=== PATIENT | female | born 1950 | race Caucasian/White ===

== ENCOUNTER 2017-03-20 06:55 | Day surgery (SDC) | payer MEDICARE, OTHER ==
[~2017-03-20 06:55] MED LIST: RINGERS SOLUTION,LACTATED 1,000 ML IV PRN; ceFAZolin SODIUM 1 GM VIAL IV PRN
[2017-03-20] MEDS ORDERED: RINGERS SOLUTION,LACTATED 1,000 ML IV ONE ×2 (07:48→09:00)
[2017-03-20] MEDS ORDERED: BUPIVACAINE HCL 50 ML VIAL IJ ONE ×2 (08:10)
[2017-03-20 10:40] VITALS: BP 152/76
== END 2017-03-20 06:56 | disposition home or self-care (01) ==
LOC: AMB 06:55
PROVIDERS: ATTEND Orthopaedic Surgery
PROC: 0RGW04Z Fusion of Right Finger Phalangeal Joint with Internal Fixation Device, Open Approach (ICD-10-PCS; principal; 2017-03-20 08:00)
DX: M19.041 Primary osteoarthritis, right hand (principal); E11.9 Type 2 diabetes mellitus without complications; I10 Essential (primary) hypertension; K58.9 Irritable bowel syndrome, unspecified; E55.9 Vitamin D deficiency, unspecified; F32.9 Major depressive disorder, single episode, unspecified; Z68.25 Body mass index [BMI] 25.0-25.9, adult

== ENCOUNTER 2020-07-28 20:20 | Inpatient (IN) ==
[2020-07-28] MEDS ORDERED: NORMAL SALINE 1,000 ML IV ONE ×2 (20:38→23:35)
[2020-07-28 20:52] LABS: Hematocrit 35.1 % (37.0-47.0); Hemoglobin 12.6 gm/dL (12.5-16.0); Mean Corpuscular Hemoglobin 29.4 pg (27-31); Mean Corpuscular Hgb Conc 35.9 g/dl (32-36); Platelet Count 193 K/mm3 (150-450); Red Blood Count 4.28 M/mm3 (4.2-5.4); Red Cell Distribution Width 11.9 % (11.5-14.0); White Blood Count 6.7 K/mm3 (4.0-10.5)
[2020-07-28 21:09] LABS: Total Cells Counted 100
[2020-07-28 21:10] LABS: Troponin I Less than 0.017 ng/mL (0.00-0.10)
[2020-07-28 21:12] LABS: ALT 20 U/L (19-67); AST 21 U/L (0-48); Albumin * 2.9 gm/dl (3.4-5.0); Alkaline Phosphatase * 97 U/L (50-170); Anion Gap 14.4 mmol/L (6.8-13.8); BNP * 356 pg/mL (5-325); BUN/Creatinine Ratio 31.9 (9.0-21.6); Bilirubin, Total 0.8 mg/dL (0.0-1.1); Blood Urea Nitrogen 22 mg/dL (3-23); Ca. Corrected For Albumin 9.7 mg/dL (8.4-10.2); Calcium * 9.1 mg/dL (7.9-10.9); Carbon Dioxide 21.8 mmol/L (24-32.6); Chloride 100 mmol/L (97-106); Glucose * 264 mg/dL (70-110); Potassium 3.2 mmol/L (3.4-4.6); Sodium 133 mmol/L (132-142)
[2020-07-28] MEDS ORDERED: hydrALAZINE HCL 20 MG/ML VIAL IV ONE (21:23)
[2020-07-28 21:34] LABS: Eosinophil 1 % (0-3); Lymphocyte 10 % (20-51); Monocyte 4 % (0-9); Neutrophil 85 % (42-75); Neutrophil # 5.7 K/mm3 (1.3-6.0)
[2020-07-28 21:35] LABS: Platelet Estimate Normal (NORMAL); RBC Morphology Normal (NORMAL)
[2020-07-28] MEDS ORDERED: ONDANSETRON HCL/PF 2 MG/ML VIAL IV ONE (22:07)
[2020-07-28] MEDS ORDERED: ONDANSETRON HCL/PF 2 MG/ML VIAL ONE (22:08)
--- NOTE | 2020-07-28 22:16 | ERNOTE ---
Medical Problem HPI - General Chief Complaint: General Assessment Time Seen by Provider: 07/28/20 20:28 - Immun/Allergies/Home Medications Immunizations: IMMUNIZATION HX Immunizations Up to Date Yes History of Influenza Vaccine Yes Hx Pneumococcal Vaccination Yes Allergies/Adverse Reactions: Allergies amoxicillin trihydrate [From Augmentin XR] Adverse Reaction (Intermediate, Verified 07/28/20 20:30) Nausea n/d potassium clavula *RETIRED-03/21/13 [From Augmentin XR] Adverse Reaction (Intermediate, Verified 07/28/20 20:30) Nausea n/d Sulfa (Sulfonamide Antibiotics) Adverse Reaction (Intermediate, Verified 07/28/20 20:30) Nausea n/d Home Medications: HOME MEDICATIONS Omeprazole [Prilosec Generic] 20 mg PO DAILY 08/04/12 [Last Taken Unknown] Cholecalciferol (Vitamin D3) [Vitamin D] 2,000 unit PO DAILY 03/10/17 [Last Taken Unknown] fluticasone propionate 50 mcg/actuation nasal spray,suspension 2 spray INTRANASAL DAILY #16 g 11/01/18 [Last Taken Unknown] blood sugar diagnostic See Dose Instructions .ROUTE .MEDSUPPLY #100 ea 01/27/19 [Last Taken Unknown] lancets See Dose Instructions .ROUTE .MEDSUPPLY #100 ea 01/27/19 [Last Taken Unknown] meloxicam 15 mg tablet 15 mg PO DAILY #90 tab 11/29/19 [Last Taken Unknown] citalopram 40 mg tablet 40 mg PO DAILY #90 tab 02/09/20 [Last Taken Unknown] losartan 100 mg tablet 100 mg PO DAILY #90 tab 02/09/20 [Last Taken Unknown] metformin 500 mg tablet 1,000 mg PO QDAC #180 tab 02/09/20 [Last Taken Unknown] eszopiclone 1 mg tablet 1 mg PO HS #30 tab 02/28/20 [Last Taken Unknown] pramipexole 1 mg tablet 2 mg PO HS #180 tab 03/27/20 [Last Taken Unknown] aspirin 81 mg tablet,delayed release 81 mg PO DAILY 04/03/20 [Last Taken Unknown] clobetasol-emollient 0.05 % topical cream 1 applic TP 2XW #30 g 04/03/20 [Last Taken Unknown] latanoprost 0.005 % eye drops 1 drp OP DAILY 08/18/20 [Last Taken Unknown] azithromycin 250 mg tablet See Rx Instructions PO .COMPLEX #6 tab 07/23/20 [Last Taken Unknown] dexamethasone 6 mg tablet 6 mg PO DAILY 10 Days #10 tab 07/23/20 [Last Taken Unknown] dicyclomine 20 mg tablet 20 mg PO QID #360 tab 07/23/20 [Last Taken Unknown] Ondansetron [Zofran Odt] 8 mg PO Q8H PRN #12 tab 07/24/20 [Last Taken Unknown] - History of Present History Narrative: 70-year-old female presents stating that she feels worse despite having received some early treatment for Covid. Her Covid test came back positive on Thursday however she has been having symptoms since 2 days before that giving her a total of 5 to 6 days of symptoms. Patient states she received [facility] therapy however due to nausea and just generalized not feeling well has not been able to take any of her medications at home. On arrival patient is alert and oriented with some mild work of breathing and her initial oxygen saturation was 89% on room air requiring 3 L to bring her to 94%. Review of Systems - Review of Systems Constitutional: Present: See HPI, weakness Respiratory: Present: See HPI, shortness of breath, cough Gastrointestinal/Abdominal: Present: nausea All Other Systems: All systems neg except as marked Medical History (Last Reviewed 07/28/20 @ 22:12 by Alivia Blackburn MD) Vitiligo (Chronic) Onset Date: Unknown Hypovitaminosis D (Chronic) Onset Date: 02/09/13 Restless leg syndrome (Chronic) Onset Date: 02/09/13 Irritable bowel syndrome (Chronic) Onset Date: Unknown Essential (primary) hypertension (Chronic) Onset Date: 02/09/13 Gout (Chronic) Onset Date: 02/09/13 Type 2 diabetes mellitus without complications (Chronic) Onset Date: 03/14/16 Depression (Chronic) Onset Date: Unknown Arthrosis (Chronic) Onset Date: ~2016 rt small finger PIP Dr. Buckner----right small finger proximal interphalangeal arthrodesis Glaucoma Influenza vaccine not given Onset Date: ~07/23/20 Has already received for the season. Anita, [employer] Lichen sclerosus Onset Date: Unknown Postmenopausal atrophic vaginitis Onset Date: 08/20/12 Postmenopausal bleeding Onset Date: 07/16/12 Sebaceous cyst Onset Date: 03/29/13 vulvar Thickened endometrium Onset Date: 07/16/12 Vulvovaginitis Onset Date: ~2009 vestibulitis- per [facility]; 2009 Surgical History: Surgical History (Last Reviewed 07/28/20 @ 22:12 by Alivia Blackburn MD) History of 2 sections Onset Date: ~1971 1971, 1975 History of arthrodesis Onset Date: 03/20/17 Dr. Buckner----right small finger proximal interphalangeal arthrodesis History of colonoscopy Onset Date: Unknown alonso--(over 20 yrs ago)--mark 1989 told ibs, spastic colon History of dilation and curettage Onset Date: 08/05/12 Dr. Zoraida Coyle, [facility]. Postmenopausal bleeding. History of flexible sigmoidoscopy Onset Date: 09/10/10 Dr. Kyle Andres, [facility]. Unable to advance scope beyond 35cm. History of hysteroscopy Onset Date: 08/05/12 Dr. Zoraida Coyle [facility]. Postmenopausal bleeding. History of lumpectomy of left breast Onset Date: ~1997 benign History of tonsillectomy and adenoidectomy Onset Date: ~1962 1962, 1966 Family History: Family History (Last Reviewed 07/28/20 @ 22:12 by Alivia Blackburn MD) Father Myocardial infarction Mother Leukemia Lymphoma Social History: (Last Reviewed 07/28/20 @ 22:12 by Alivia Blackburn MD) Social History: adopted: No snf: No Marital status: household members: spouse number of children: 2 current occupational status: retired current occupational exposures/hazards: No Highest level of school completed/degree received: high school graduate Service: No Tobacco: Smoking Status: Never smoker Alcohol: alcohol intake: never Substance Use: substance use type: does not use Dietary Habits: caffeine: Yes caffeine comment: 0-2/day Type: coffee Personal Safety: victim of physical abuse: No victim of emotional abuse: No Physical Exam - Physical Exam General Appearance: Present: alert, mild distress Head Exam: Present: normal inspection, no evidence of injury Eye Exam: Normal inspection: bilateral Ears, Nose, Throat: Present: dry mucous membranes Neck: Present: normal inspection, nontender, supple, full range of motion Respiratory: Present: respiratory distress - Mild although speaking in complete sentences Cardiovascular/Chest: Present: regular rate, rhythm, normal peripheral pulses, tachycardia Gastrointestinal/Abdominal: Present: nontender, nondistended, soft Back Exam: Present: no CVA tenderness, no vertebral tenderness Extremity Exam: Present: normal inspection, non-tender, normal range of motion, no edema Neurological Exam: Present: alert, oriented, normal mood/affect Skin Exam: Present: normal color, other - Mild skin tenting Progress - Results and Orders Patient's Lab Results:: I have reviewed the patient's lab results. - Vital Signs Patient's Vital Signs:: I have reviewed the patient's vital signs. Vital Signs: Vital Signs 07/28/20 20:33 07/28/20 21:32 07/28/20 21:41 Temperature 37.0 C Pulse Rate 92 86 106 H Respiratory Rate 14 18 Blood Pressure 184/91 H 198/101 H 160/86 H O2 Sat by Pulse Oximetry 95 95 - EKG EKG #1 EKG: NSR, nonspecific ST T wave changes, other - Sinus tachycardia rate 112 EKG #2 EKG: NSR, nonspecific ST T wave changes, other - Sinus tachycardia rate 112 EKG read: Reviewed by me - X-Ray X-Ray #1 X-Ray: chest - Patchy infiltrates consistent with Covid Interpretation: Interp. by me - Progress/Reassessment Chief Complaint: General Assessment Plan - Plan Plan: Patient given IV hydration not improving despite medications and noncompliant at home due to nausea initial troponin is negative BNP mildly elevated patient has patchy infiltrates consistent with Covid Case discussed with admitting physician who accepted the patient for further care and management of Covid with hypoxia Departure Clinical Impression: COVID-19, Hypoxia Hypertension Qualifiers: Hypertension type: essential hypertension Qualified Code(s): I10 - Essential (primary) hypertension - Departure Disposition: Short Term Hospital Inpatient Condition: Fair Referrals: Juarez Boggs DO [Primary Care Provider] -
[2020-07-28] MEDS ORDERED: POTASSIUM CHLORIDE 20 MEQ TABLET.SA PO ONE (23:21)
[2020-07-28] MEDS ORDERED: ACETAMINOPHEN 325 MG TABLET PO PRN (23:22)
[2020-07-28] MEDS ORDERED: ONDANSETRON HCL/PF 2 MG/ML VIAL IV PRN (23:22)
[2020-07-28] MEDS ORDERED: REMDESIVIR 200 MG in NORMAL SALINE 210 ML IV ONE (23:23)
[2020-07-28] MEDS ORDERED: guaiFENesin 100 MG/5 ML SYRUP PO PRN (23:23)
[2020-07-28] MEDS ORDERED: REMDESIVIR 100 MG in NORMAL SALINE 230 ML IV SCH (23:30)
[2020-07-28] MEDS ORDERED: ONDANSETRON 8 MG TAB.RAPDIS PO PRN (23:31)
[2020-07-28] MEDS ORDERED: AZITHROMYCIN 250 MG TABLET PO SCH (23:45)
--- NOTE | 2020-07-29 00:07 | HP ---
Chief Complaint - Chief Complaint Date of Service: 07/28/20 Time of Service: 23:54 Chief Complaint: I have shortness of breath cough body ache and headache History of Present Illness: 70-year-old female with past medical history of type 2 diabetes, hypertension, insomnia, depression, and glaucoma was evaluated in the ER due to worsening generalized weakness shortness of breath headache and malaise. The patient reports since last Thursday she started feeling ill and developed intense headache and body ache, shortly after she started developing chills but denies having fever. The patient received a positive COVID-19 diagnosis on Thursday and was discharged home with outpatient management with the been been therapy. However she admits that due to poor oral intake secondary to intense nausea she did not take the medications which included dexamethasone and azithromycin, she also admits to not taking any of her routine medications which would explain her significantly elevated blood pressure upon arriving to the hospital today. The patient's condition worsened throughout the week and she eventually started having difficulty breathing. She became alarmed enough to come to the hospital today where she was found to have an oxygen saturation in the upper 80s with a requirement for at least 3 L of oxygen to maintain a saturation of 94% which is new for the patient. The patient appeared significantly dehydrated and weak with current hospitalization. Medical History (Last Reviewed 07/28/20 @ 22:12 by Alivia Blackburn MD) Vitiligo (Chronic) Onset Date: Unknown Hypovitaminosis D (Chronic) Onset Date: 02/09/13 Restless leg syndrome (Chronic) Onset Date: 02/09/13 Irritable bowel syndrome (Chronic) Onset Date: Unknown Essential (primary) hypertension (Chronic) Onset Date: 02/09/13 Gout (Chronic) Onset Date: 02/09/13 Type 2 diabetes mellitus without complications (Chronic) Onset Date: 03/14/16 Depression (Chronic) Onset Date: Unknown Arthrosis (Chronic) Onset Date: ~2016 rt small finger PIP Dr. Buckner----right small finger proximal interphalangeal arthrodesis Glaucoma Influenza vaccine not given Onset Date: ~07/23/20 Has already received for the season. [facility] Lichen sclerosus Onset Date: Unknown Postmenopausal atrophic vaginitis Onset Date: 08/20/12 Postmenopausal bleeding Onset Date: 07/16/12 Sebaceous cyst Onset Date: 03/29/13 vulvar Thickened endometrium Onset Date: 07/16/12 Vulvovaginitis Onset Date: ~2009 vestibulitis- per [facility]; 2009 Surgical History: Surgical History (Last Reviewed 07/28/20 @ 22:12 by Alivia Blackburn MD) History of 2 sections Onset Date: ~1971 1971, 1975 History of arthrodesis Onset Date: 03/20/17 Dr. Buckner----right small finger proximal interphalangeal arthrodesis History of colonoscopy Onset Date: Unknown alonso--(over 20 yrs ago)--mark 1989 told ibs, spastic colon History of dilation and curettage Onset Date: 08/05/12 Dr. Zoarida Coyle, [facility]. Postmenopausal bleeding. History of flexible sigmoidoscopy Onset Date: 09/10/10 Dr. Kyle Andres, [facility]. Unable to advance scope beyond 35cm. History of hysteroscopy Onset Date: 08/05/12 Dr. Zoraida Coyle [facility]. Postmenopausal bleeding. History of lumpectomy of left breast Onset Date: ~1997 benign History of tonsillectomy and adenoidectomy Onset Date: ~1962 1962, 1966 Family History: Family History (Last Reviewed 07/28/20 @ 22:12 by Alivia Blackburn MD) Father Myocardial infarction Mother Leukemia Lymphoma Social History: (Last Reviewed 07/28/20 @ 22:12 by Alivia Blackburn MD) Social History: adopted: No halfway: No Marital status: household members: spouse number of children: 2 current occupational status: retired current occupational exposures/hazards: No Highest level of school completed/degree received: high school graduate Service: No Tobacco: Smoking Status: Never smoker Alcohol: alcohol intake: never Substance Use: substance use type: does not use Dietary Habits: caffeine: Yes caffeine comment: 0-2/day Type: coffee Personal Safety: victim of physical abuse: No victim of emotional abuse: No Peds Patient Hx - Developmental: No Pertinent Hx Peds Patient Hx - Medical: No Pertinent Hx Peds Patient Hx - Cardiac/Respiratory: No Pertinent Hx Peds Patient Hx - Surgical: No Surgical History Patient History - Cancer: No Hx of Cancer Review Of Systems (GEN) - Review of Systems Generalized/Overall Review: Present: Weakness, Chills, Malaise, Fatigue EENTM: Present: No Symptoms Reported Respiratory: Present: Cough, Shortness of Breath Cardiac: Present: No Symptoms Reported Abdominal: Present: Nausea, Abdominal Pain Genitourinary: Present: No Symptoms Reported Musculoskeletal: Present: Other - Generalized body ache Neurological: Present: No Symptoms Reported Skin: Present: No Symptoms Reported Endocrine: Present: No Symptoms Reported Immunizations: IMMUNIZATION HX Immunizations Up to Date Yes History of Influenza Vaccine Yes Hx Pneumococcal Vaccination Yes Allergies/Adverse Reactions: Allergies Allergy/AdvReac Type Severity Reaction Status Date / Time amoxicillin trihydrate AdvReac Intermediate Nausea Verified 07/28/20 20:30 [From Augmentin XR] potassium clavula AdvReac Intermediate Nausea Verified 07/28/20 20:30 *RETIRED-03/21/13 [From Augmentin XR] Sulfa (Sulfonamide AdvReac Intermediate Nausea Verified 07/28/20 20:30 Antibiotics) Home Medications: HOME MEDICATIONS Omeprazole [Prilosec Generic] 20 mg PO DAILY 08/04/12 [Last Taken Unknown] Cholecalciferol (Vitamin D3) [Vitamin D] 2,000 unit PO DAILY 03/10/17 [Last Taken Unknown] fluticasone propionate 50 mcg/actuation nasal spray,suspension 2 spray INTRANASAL DAILY #16 g 11/01/18 [Last Taken Unknown] blood sugar diagnostic See Dose Instructions .ROUTE .MEDSUPPLY #100 ea 01/27/19 [Last Taken Unknown] lancets See Dose Instructions .ROUTE .MEDSUPPLY #100 ea 01/27/19 [Last Taken Unknown] meloxicam 15 mg tablet 15 mg PO DAILY #90 tab 11/29/19 [Last Taken Unknown] citalopram 40 mg tablet 40 mg PO DAILY #90 tab 02/09/20 [Last Taken Unknown] losartan 100 mg tablet 100 mg PO DAILY #90 tab 02/09/20 [Last Taken Unknown] metformin 500 mg tablet 1,000 mg PO QDAC #180 tab 02/09/20 [Last Taken Unknown] eszopiclone 1 mg tablet 1 mg PO HS #30 tab 02/28/20 [Last Taken Unknown] pramipexole 1 mg tablet 2 mg PO HS #180 tab 03/27/20 [Last Taken Unknown] aspirin 81 mg tablet,delayed release 81 mg PO DAILY 04/03/20 [Last Taken Unknown] clobetasol-emollient 0.05 % topical cream 1 applic TP 2XW #30 g 04/03/20 [Last Taken Unknown] latanoprost 0.005 % eye drops 1 drp OP DAILY 04/03/20 [Last Taken Unknown] azithromycin 250 mg tablet See Rx Instructions PO .COMPLEX #6 tab 07/23/20 [Last Taken Unknown] dexamethasone 6 mg tablet 6 mg PO DAILY 10 Days #10 tab 07/23/20 [Last Taken Unknown] dicyclomine 20 mg tablet 20 mg PO QID #360 tab 07/23/20 [Last Taken Unknown] Ondansetron [Zofran Odt] 8 mg PO Q8H PRN #12 tab 07/24/20 [Last Taken Unknown] Exam - Exam Vital Signs: Vital Signs - Last Taken Temp 36.6 C 07/28/20 23:14 Pulse 108 H 07/28/20 23:14 Resp 15 07/28/20 23:14 BP 167/77 H 07/28/20 23:14 Pulse Ox 100 07/28/20 23:14 Constitutional: Present: Alert, Oriented x3, Cooperative, Well developed, No distress, Lethargic, Thin and frail ENT Exam: Present: normal ENT inspection, hearing grossly normal Eye Exam: bilateral eye: normal inspection, PERRL, EOMI Neck: Present: non-tender, full range of motion, supple, normal inspection, trachea midline Back Exam: Present: normal inspection, no CVA tenderness, no vertebral tenderness Breasts: Present: Exam deferred, Nontender Respiratory: Present: chest non-tender, normal breath sounds, no respiratory distress, no accessory muscle use, crackles Cardiovascular/Chest: Present: normal peripheral pulses, regular rate, rhythm, no chest tenderness, no edema, no gallop, no JVD, no murmur, no rub Peripheral Pulses: dorsalis-pedis (R): 3+, dorsalis-pedis (L): 3+ Abdomen: Present: Normal bowel sounds, soft, nondistended, no rebound tenderness, no hepatospenomegaly, no masses, tender - Left upper, lower quadrant and right lower quadrant tenderness. /Rectal: Present: Exam deferred Extremity: Present: normal range of motion, non-tender, normal inspection, no pedal edema, no calf tenderness, normal capillary refill, pelvis stable Skin Exam: Present: warm/dry, no cyanosis, pallor, other - Erythema on knees worse on left Lymphatic: Present: no adenopathy Neurologic: Present: no motor/sensory deficits, alert, normal mood/affect, oriented x 3 Appearance: Present: appropriate appearance, appropriate insight, neat, no memory impairment Eye contact: Present: cooperative, good eye contact, normal speech Thoughts: Present: normal thought pattern, no apparent hallucination Diagnostic Studies: Abnormal Lab Results 07/28/20 07/28/20 Range/Units 20:31 20: Hct 35.1 L (37.0-47.0) % Neutrophils % (Manual) 85 H (42-75) % Lymphocytes % (Manual) 10 L (20-51) % Lymphocytes # (Manual) 0.7 L (1.5-3.5) k/mm3 Potassium 3.2 L D (3.4-4.6) mmol/L Carbon Dioxide 21.8 L (24-32.6) mmol/L Anion Gap 14.4 H (6.8-13.8) mmol/L BUN/Creatinine Ratio 31.9 H (9.0-21.6) Random Glucose 264 H (70-110) mg/dL B-Natriuretic Peptide 356 H (5-325) pg/mL Albumin 2.9 L (3.4-5.0) gm/dl Laboratory Results WBC 6.7 K/mm3 (4.0-10.5) 07/28/20 20: RBC 4.28 M/mm3 (4.2-5.4) 07/28/20 20:31 Hgb 12.6 gm/dL (12.5-16.0) 07/28/20 20: Hct 35.1 % (37.0-47.0) L 07/28/20 20:31 MCV 82.0 fl (78-100) 07/28/20 20: MCH 29.4 pg (27-31) 07/28/20 20: MCHC 35.9 g/dl (32-36) 07/28/20 20: RDW 11.9 % (11.5-14.0) 07/28/20 20:31 Plt Count 193 K/mm3 (150-450) 07/28/20 20: MPV 9.0 fl (8-12.5) 07/28/20 20:31 Neutrophils % (Manual) 85 % (42-75) H 07/28/20 20:31 Lymphocytes % (Manual) 10 % (20-51) L 07/28/20 20:31 Monocytes % (Manual) 4 % (0-9) 07/28/20 20:31 Eosinophils % (Manual) 1 % (0-3) 07/28/20 20:31 Neutrophils # (Manual) 5.7 K/mm3 (1.3-6.0) 07/28/20 20:31 Lymphocytes # (Manual) 0.7 k/mm3 (1.5-3.5) L 07/28/20 20:31 Monocytes # (Manual) 0.3 k/mm3 (0.0-1.0) 07/28/20 20:31 Eosinophils # (Manual) 0.1 k/mm3 (0.0-0.7) 07/28/20 20:31 Platelet Estimate Normal (NORMAL) 07/28/20 20:31 RBC Morphology Normal (NORMAL) 07/28/20 20:31 Sodium 133 mmol/L (132-142) 07/28/20 20:31 Plasma Sodium 136 mmol/L (130-142) 07/28/20 20:31 Potassium 3.2 mmol/L (3.4-4.6) L D 07/28/20 20:31 Chloride 100 mmol/L (97-106) 07/28/20 20:31 Carbon Dioxide 21.8 mmol/L (24-32.6) L 07/28/20 20:31 Anion Gap 14.4 mmol/L (6.8-13.8) H 07/28/20 20:31 BUN 22 mg/dL (3-23) 07/28/20 20:31 Creatinine 0.69 mg/dL (0.4-1.4) 07/28/20 20:31 Est GFR (Non-Af Amer) 90 mL/min (60-130) D 07/28/20 20:31 BUN/Creatinine Ratio 31.9 (9.0-21.6) H 07/28/20 20:31 Random Glucose 264 mg/dL (70-110) H 07/28/20 20:31 Lactic Acid, Venous 2.0 mmol/L (0.4-2.0) 07/28/20 20:31 Calcium 9.1 mg/dL (7.9-10.9) 07/28/20 20:31 Calcium Adj for Albumin 9.7 mg/dL (8.4-10.2) 07/28/20 20: Total Bilirubin 0.8 mg/dL (0.0-1.1) 07/28/20 20:31 AST 21 U/L (0-48) 07/28/20 20: ALT 20 U/L (19-67) 07/28/20 20: Alkaline Phosphatase 97 U/L (50-170) 07/28/20 20: Troponin I Less than 0.017 ng/mL (0.00-0.10) 07/28/20 20: B-Natriuretic Peptide 356 pg/mL (5-325) H 07/28/20 20: Total Protein 7.0 gm/dL (6.2-8.2) 07/28/20 20: Albumin 2.9 gm/dl (3.4-5.0) L 07/28/20 20:31 Assessment/Plan - Narrative Narrative: Patient was evaluated medical chart was reviewed and decision to admit inpatient to [facility] for management of COVID-19 pneumonia, severe dehydration, and poor oral intake was made. We will treat the patient with remdesivir given the presentation of her symptoms and the duration of her illness. We will also start her on the previously prescribed outpatient treatments with azithromycin and dexamethasone since she did not take them while at home. Currently she is on nasal cannula requiring 3 L which she is tolerating without any issues. We will also hydrate her because the patient appears significantly dehydrated. Symptomatic medications with acetaminophen for fever, Zofran for nausea, and an antitussive for cough were ordered. We will also administer routine medications. We will reevaluate the patient in the morning. - Assessment/Plan (1) COVID-19 Problem: Acute (2) Hypoxia Problem: Acute (3) Hypertension Problem: Acute Qualifiers: Hypertension type: essential hypertension Qualified Code(s): I10 - Essential (primary) hypertension (4) Dyspnea Problem: Acute (5) Irritable bowel syndrome Problem: Chronic (6) Essential (primary) hypertension Problem: Chronic (7) Type 2 diabetes mellitus without complications Problem: Chronic Qualifiers: (8) Depression Problem: Chronic (9) Dehydration Problem: Acute (10) Generalized weakness Problem: Acute (11) Poor appetite Problem: Acute
[2020-07-29] MEDS ORDERED: POTASSIUM CHLORIDE 20 MEQ TABLET.SA ONE (00:44)
[2020-07-29] MEDS: DICYCLOMINE HCL 20 MG TABLET PO SCH ×5 (00:50→20:11)
[2020-07-29] MEDS: ENOXAPARIN SODIUM 40 MG/0.4 ML SYRG SC SCH ×2 (00:50→20:11)
[2020-07-29] MEDS ORDERED: AZITHROMYCIN 250 MG TABLET PO ONE (01:59)
[2020-07-29] MEDS: POTASSIUM CHLORIDE IN WATER 100 ML IV SCH ×2 (02:51→03:56)
[2020-07-29] MEDS: PANTOPRAZOLE SODIUM 20 MG TABLET.DR PO SCH ×2 (07:10→20:12)
[2020-07-29] MEDS: metFORMIN HCL 500 MG TABLET PO SCH (07:10)
[2020-07-29 07:29] LABS: Albumin * 2.4 gm/dl (3.4-5.0); Anion Gap 11.8 mmol/L (6.8-13.8); BUN/Creatinine Ratio 27.1 (9.0-21.6); Bilirubin, Total 0.6 mg/dL (0.0-1.1); Carbon Dioxide 22.6 mmol/L (24-32.6); Potassium 3.4 mmol/L (3.4-4.6); Total Protein 5.2 gm/dL (6.2-8.2)
[2020-07-29] MEDS: INSULIN REGULAR, HUMAN 100 UNITS/ML VIAL SC SCH ×4 (08:14→20:37)
[2020-07-29] MEDS: FLUTICASONE PROPIONATE 120 SPRAY INHALER NS SCH (08:45)
[2020-07-29] MEDS: CITALOPRAM HYDROBROMIDE 20 MG TABLET PO SCH (08:46)
[2020-07-29] MEDS: LOSARTAN POTASSIUM 50 MG TABLET PO SCH (08:46)
[2020-07-29] MEDS: DEXAMETHASONE 2 MG TABLET PO SCH (08:46)
[2020-07-29] MEDS: CHOLECALCIFEROL 1,000 UNIT CAPSULE PO SCH (08:46)
[2020-07-29] MEDS: ASPIRIN 81 MG TABLET.DR PO SCH (08:46)
[2020-07-29] MEDS ORDERED: CLOBETASOL PROPIONATE/EMOLL 60 APPL TUBE TP SCH (09:00)
[2020-07-29] MEDS ORDERED: NORMAL SALINE 1,000 ML IV ONE (14:32)
--- NOTE | 2020-07-29 14:33 | PN ---
Subjective - Date and Time Seen Date: 07/29/20 Time: 14:26 Subjective Narrative: I still feel lousy, weak and poor appetite Objective Objective Narrative: 70-year-old female admitted for COVID-19 pneumonia, dehydration, and generalized weakness was evaluated at bedside and was found to be afebrile and in no acute distress. Patient has shown some improvement since arriving however she continues to report weakness and a poor appetite. Patient refused her breakfast this morning and has only been taking sips of water. During the evaluation she was encouraged to increase her oral intake to avoid worsening malnourishment. She was treated with IV hydration and symptomatic medications and says she feels somewhat better, her color has also improved. However clinically the patient still appears acutely ill and requires a longer duration of the hospital. She was successfully weaned to room air and is maintaining oxygen saturation above 94% and maintained stable vitals. We will reevaluate her in the morning. - Review of Systems Generalized/Overall Review: Reports: Weakness EENTM: Reports: No Symptoms Reported Respiratory: Reports: Cough Cardiac: Reports: No Symptoms Reported Abdominal: Reports: No Symptoms Reported Genitourinary Symptoms: Reports: No Symptoms Reported Musculoskeletal Complaints: Reports: No Symptoms Reported Neurological: Reports: No Symptoms Reported Skin: Reports: No Symptoms Reported Endocrine: Reports: No Symptoms Reported - Vitals Vitals: Last Vital Signs Temp 37.3 C 07/29/20 14:00 Pulse 73 07/29/20 14:00 Resp 15 07/29/20 14:00 BP 151/74 H 07/29/20 14:00 Pulse Ox 100 07/29/20 14:00 - Abnormal Lab Findings Abnormal Lab Findings: Abnormal Lab Results 07/28/20 07/28/20 07/29/20 Range/Units 20:31 20:31 06:40 Hct 35.1 L (37.0-47.0) % Neutrophils % (Manual) 85 H (42-75) % Lymphocytes % (Manual) 10 L (20-51) % Lymphocytes # (Manual) 0.7 L (1.5-3.5) k/mm3 Potassium 3.2 L D (3.4-4.6) mmol/L Chloride 107 H (97-106) mmol/L Carbon Dioxide 21.8 L 22.6 L (24-32.6) mmol/L Anion Gap 14.4 H (6.8-13.8) mmol/L BUN/Creatinine Ratio 31.9 H 27.1 H (9.0-21.6) Random Glucose 264 H 190 H (70-110) mg/dL ALT 17 L (19-67) U/L B-Natriuretic Peptide 356 H (5-325) pg/mL Total Protein 5.2 L (6.2-8.2) gm/dL Albumin 2.9 L 2.4 L (3.4-5.0) gm/dl - Exam Constitutional: Present: Alert, Oriented x3, Cooperative, Well developed, Well nourished, No distress, Lethargic, Elderly ENT Exam: Present: normal ENT inspection, hearing grossly normal Neck: Present: non-tender, full range of motion, supple, normal inspection, trachea midline Breasts: Present: Exam deferred, Nontender Respiratory: Present: chest non-tender, lungs clear, normal breath sounds, no respiratory distress, no accessory muscle use Cardiovascular/Chest: Present: normal peripheral pulses, regular rate, rhythm, no chest tenderness, no edema, no gallop, no JVD, no murmur, no rub Abdomen: Present: Normal bowel sounds, soft, nontender, nondistended, no rebound tenderness, no hepatospenomegaly, no masses /Rectal: Present: Exam deferred Extremity: Present: normal range of motion, non-tender, normal inspection, no pedal edema, no calf tenderness, normal capillary refill, pelvis stable Skin Exam: Present: warm/dry, no cyanosis, pallor Lymphatic: Present: no adenopathy Neurologic: Present: no motor/sensory deficits, alert Appearance: Present: appropriate appearance, appropriate insight, neat, no luann ry impairment Eye contact: Present: cooperative, good eye contact, normal speech Thoughts: Present: normal thought pattern, no apparent hallucination Assessment/Plan Plan Narrative: We will treat the patient with additional IV hydration especially given the fact that she still has poor oral intake, she is gaining her strength but still is not at her baseline so she will need additional days of intrahospital care. We will continue to monitor closely. - Problems/Diagnosis (1) COVID-19 Problem: Acute (2) Hypoxia Problem: Resolved (3) Hypertension Problem: Acute Qualifiers: Hypertension type: essential hypertension Qualified Code(s): I10 - Essential (primary) hypertension (4) Dyspnea Problem: Resolved (5) Irritable bowel syndrome Problem: Chronic (6) Essential (primary) hypertension Problem: Chronic (7) Type 2 diabetes mellitus without complications Problem: Chronic Qualifiers: (8) Depression Problem: Chronic (9) Dehydration Problem: Acute (10) Generalized weakness Problem: Acute (11) Poor appetite Problem: Acute
[2020-07-29] MEDS ORDERED: amLODIPine BESYLATE 10 MG TABLET PO ONE (20:00)
[2020-07-29] MEDS: PRAMIPEXOLE DI-HCL 0.5 MG TABLET PO SCH (20:11)
[2020-07-29] MEDS: ESZOPICLONE 1 MG PO SCH (20:12)
[2020-07-29] MEDS: LATANOPROST 25 DROP BTL OP SCH (20:12)
[2020-07-29] MEDS ORDERED: REMDESIVIR 100 MG in NORMAL SALINE 230 ML IV SCH (21:00)
[2020-07-30] MEDS: metFORMIN HCL 500 MG TABLET PO SCH (06:48)
[2020-07-30] MEDS: PANTOPRAZOLE SODIUM 20 MG TABLET.DR PO SCH ×2 (06:49→20:22)
[2020-07-30 07:12] LABS: Albumin * 2.3 gm/dl (3.4-5.0); Anion Gap 12.5 mmol/L (6.8-13.8); BUN/Creatinine Ratio 25.5 (9.0-21.6); Bilirubin, Total 0.5 mg/dL (0.0-1.1); Ca. Corrected For Albumin 9.1 mg/dL (8.4-10.2); Calcium * 8.1 mg/dL (7.9-10.9); Carbon Dioxide 23.5 mmol/L (24-32.6); Total Protein 5.6 gm/dL (6.2-8.2)
[2020-07-30] MEDS: INSULIN REGULAR, HUMAN 100 UNITS/ML VIAL SC SCH ×4 (07:15→20:44)
[2020-07-30] MEDS: DICYCLOMINE HCL 20 MG TABLET PO SCH ×4 (08:08→20:22)
[2020-07-30] MEDS: CHOLECALCIFEROL 1,000 UNIT CAPSULE PO SCH (08:08)
[2020-07-30] MEDS: ASPIRIN 81 MG TABLET.DR PO SCH (08:08)
[2020-07-30] MEDS: FLUTICASONE PROPIONATE 120 SPRAY INHALER NS SCH (08:09)
[2020-07-30] MEDS: AZITHROMYCIN 250 MG TABLET PO SCH (08:09)
[2020-07-30] MEDS: DEXAMETHASONE 2 MG TABLET PO SCH (08:09)
[2020-07-30] MEDS: LOSARTAN POTASSIUM 50 MG TABLET PO SCH (08:10)
[2020-07-30] MEDS: CITALOPRAM HYDROBROMIDE 20 MG TABLET PO SCH (08:10)
[2020-07-30] MEDS ORDERED: POTASSIUM CHLORIDE 20 MEQ TABLET.SA PO ONE (08:51)
[2020-07-30] MEDS: ENOXAPARIN SODIUM 40 MG/0.4 ML SYRG SC SCH (20:21)
[2020-07-30] MEDS: PRAMIPEXOLE DI-HCL 0.5 MG TABLET PO SCH (20:22)
[2020-07-30] MEDS: ESZOPICLONE 1 MG PO SCH (20:41)
[2020-07-30] MEDS: LATANOPROST 25 DROP BTL OP SCH (20:41)
--- NOTE | 2020-07-30 23:58 | PN ---
Subjective - Date and Time Seen Date: 07/30/20 Time: 15:30 Subjective Narrative: Viviana feels extremely weak. She only took bites of food today, but this is an improvement over yesterday where she ate nothing. She remains of oxygen. Objective - Vitals Vitals: Last Vital Signs Temp 36.9 C 07/30/20 22:05 Pulse 76 07/30/20 22:05 Resp 18 07/30/20 22:05 BP 150/77 H 07/30/20 22:05 Pulse Ox 95 07/30/20 22:05 - Abnormal Lab Findings Abnormal Lab Findings: Abnormal Lab Results 07/30/20 Range/Units 06:40 Potassium 3.0 L (3.4-4.6) mmol/L Carbon Dioxide 23.5 L (24-32.6) mmol/L BUN/Creatinine Ratio 25.5 H (9.0-21.6) Random Glucose 174 H (70-110) mg/dL ALT 15 L (19-67) U/L Total Protein 5.6 L (6.2-8.2) gm/dL Albumin 2.3 L (3.4-5.0) gm/dl - Exam Exam Narrative: Curled up in a ball, too weak to move and look at me when speaking. Constitutional: Present: Alert, Oriented x3 ENT Exam: Present: hearing grossly normal Respiratory: Present: lungs clear, normal breath sounds, no respiratory distress Cardiovascular/Chest: Present: regular rate, rhythm Abdomen: Present: Normal bowel sounds, soft, nontender, nondistended Skin Exam: Present: normal color, warm/dry, no cyanosis Appearance: Present: appropriate insight Eye contact: Present: cooperative, good eye contact, normal speech Assessment/Plan Plan Narrative: Respiratory status doing well, but she is not eating or drinking adequately to safely discharge to home. She has been rehydrated but not eating or drinking enough on her own to maintain that level and would be readmitted if discharged. Blood pressure improved today. - Problems/Diagnosis (1) COVID-19 Problem: Acute (2) Dehydration Problem: Acute (3) Generalized weakness Problem: Acute (4) Essential (primary) hypertension Problem: Chronic
[2020-07-31 06:56] LABS: Albumin * 2.4 gm/dl (3.4-5.0); Anion Gap 11.5 mmol/L (6.8-13.8); BUN/Creatinine Ratio 23.1 (9.0-21.6); Bilirubin, Total 0.5 mg/dL (0.0-1.1); Ca. Corrected For Albumin 9.6 mg/dL (8.4-10.2); Calcium * 8.6 mg/dL (7.9-10.9); Carbon Dioxide 24.5 mmol/L (24-32.6); Total Protein 5.6 gm/dL (6.2-8.2)
[2020-07-31] MEDS: INSULIN REGULAR, HUMAN 100 UNITS/ML VIAL SC SCH ×2 (07:05→12:22)
[2020-07-31] MEDS: PANTOPRAZOLE SODIUM 20 MG TABLET.DR PO SCH (07:24)
[2020-07-31] MEDS: metFORMIN HCL 500 MG TABLET PO SCH (07:24)
[2020-07-31] MEDS: CITALOPRAM HYDROBROMIDE 20 MG TABLET PO SCH (10:30)
[2020-07-31] MEDS: DEXAMETHASONE 2 MG TABLET PO SCH (10:30)
[2020-07-31] MEDS: FLUTICASONE PROPIONATE 120 SPRAY INHALER NS SCH (10:30)
[2020-07-31] MEDS: CHOLECALCIFEROL 1,000 UNIT CAPSULE PO SCH (10:30)
[2020-07-31] MEDS: LOSARTAN POTASSIUM 50 MG TABLET PO SCH (10:31)
[2020-07-31] MEDS: ASPIRIN 81 MG TABLET.DR PO SCH (10:31)
[2020-07-31] MEDS: AZITHROMYCIN 250 MG TABLET PO SCH (10:31)
[2020-07-31] MEDS: DICYCLOMINE HCL 20 MG TABLET PO SCH ×2 (10:31→12:23)
--- NOTE | 2020-07-31 16:24 | DS ---
(1) COVID-19 Problem: Acute (2) Dehydration Problem: Acute (3) Generalized weakness Problem: Acute (4) Essential (primary) hypertension Problem: Chronic Date of Discharge:: 07/31/20 Hospital Course: Viviana was admitted due to acute respiratory failure, dehydration, and failure to thrive following COVID-19. She was briefly placed on oxygen to keep her sats 90% or greater, but she was shortly weaned from oxygen. Two days ago she was not able to eat or drink anything and was not taking adequate nutrition to be able to discharge. Yesterday she only had a few bites, but today she is significantly improved. She remains off of oxygen and will be discharged to home. Procedures Performed: none Results and Findings: Pending Mircobiology Results 07/28/20 21:15 Blood Blood Culture - Preliminary NO GROWTH AFTER 48 HOURS 07/28/20 20:31 Blood Blood Culture - Preliminary NO GROWTH AFTER 48 HOURS Lab Pending Results 07/28/20 20:31: WBC 6.7, RBC 4.28, Hgb 12.6, Hct 35.1 L, MCV 82.0, MCH 29.4, MCHC 35.9, RDW 11.9, Plt Count 193, MPV 9.0, Neutrophils % (Manual) 85 H, Lymphocytes % (Manual) 10 L, Monocytes % (Manual) 4, Eosinophils % (Manual) 1, Neutrophils # (Manual) 5.7, Lymphocytes # (Manual) 0.7 L, Monocytes # (Manual) 0.3, Eosinophils # (Manual) 0.1, Platelet Estimate Normal, RBC Morphology Normal 07/28/20 20:31: Sodium 133, Plasma Sodium 136, Potassium 3.2 L D, Chloride 100, Carbon Dioxide 21.8 L, Anion Gap 14.4 H, BUN 22, Creatinine 0.69, Est GFR (Non- Af Amer) 90 D, BUN/Creatinine Ratio 31.9 H, Random Glucose 264 H, Calcium 9.1, Calcium Adj for Albumin 9.7, Total Bilirubin 0.8, AST 21, ALT 20, Alkaline Phosphatase 97, Troponin I Less than 0.017, B-Natriuretic Peptide 356 H, Total Protein 7.0, Albumin 2.9 L 07/28/20 20:31: Lactic Acid, Venous 2.0 07/29/20 00:15: Lactic Acid, Venous 1.3 07/29/20 06:40: Sodium 138, Plasma Sodium 139, Potassium 3.4, Chloride 107 H, Carbon Dioxide 22.6 L, Anion Gap 11.8, BUN 16, Creatinine 0.59, Est GFR (Non-Af Amer) 108, BUN/Creatinine Ratio 27.1 H, Random Glucose 190 H, Calcium 8.0, Calcium Adj for Albumin 9.0, Total Bilirubin 0.6, AST 20, ALT 17 L, Alkaline Phosphatase 78, Total Protein 5.2 L, Albumin 2.4 L 07/30/20 06:40: Sodium 137, Plasma Sodium 138, Potassium 3.0 L, Chloride 104, Carbon Dioxide 23.5 L, Anion Gap 12.5, BUN 14, Creatinine 0.55, Est GFR (Non-Af Amer) 117, BUN/Creatinine Ratio 25.5 H, Random Glucose 174 H, Calcium 8.1, Calcium Adj for Albumin 9.1, Total Bilirubin 0.5, AST 17, ALT 15 L, Alkaline Phosphatase 70, Total Protein 5.6 L, Albumin 2.3 L 07/31/20 06:36: Sodium 135, Plasma Sodium 135, Potassium 3.0 L, Chloride 102, Carbon Dioxide 24.5, Anion Gap 11.5, BUN 15, Creatinine 0.65, Est GFR (Non-Af Amer) 96, BUN/Creatinine Ratio 23.1 H, Random Glucose 127 H, Calcium 8.6, Calcium Adj for Albumin 9.6, Total Bilirubin 0.5, AST 21, ALT 17 L, Alkaline Phosphatase 71, Total Protein 5.6 L, Albumin 2.4 L Discharge Location: Home Disposition: Home Health Service Home Health Agency: [facility] Home Health Condition: Fair Discharge Activity: Activity as tolerated Discharge Diet: General/regular food Referrals: Juarez Boggs DO [Primary Care Provider] - One Week (Phone, video, or clinic visit) Problem Oriented Discharge Instructions to Patient/Family: COVID-19 Additional Patient Instructions (free text): [facility] GABRIELLE amaral. Please call report and fax orders upon discharge. . Dr. Boggs will call you for your follow up appointment on August 06 at 9:30 a.m. Complete Home Medications List: Complete Home Medication List: Omeprazole [Prilosec] 20 mg PO DAILY 08/04/12 Cholecalciferol (Vitamin D3) [Vitamin D3] 2,000 unit PO DAILY 03/10/17 fluticasone propionate 50 mcg/actuation nasal spray,suspension 2 spray INTRANASAL DAILY #16 g 11/01/18 blood sugar diagnostic See Dose Instructions .ROUTE .MEDSUPPLY #100 ea 01/27/19 lancets See Dose Instructions .ROUTE .MEDSUPPLY #100 ea 01/27/19 meloxicam 15 mg tablet 15 mg PO DAILY #90 tab 11/29/19 citalopram 40 mg tablet 40 mg PO DAILY #90 tab 02/09/20 losartan 100 mg tablet 100 mg PO DAILY #90 tab 02/09/20 metformin 500 mg tablet 1,000 mg PO QDAC #180 tab 02/09/20 eszopiclone 1 mg tablet 1 mg PO HS #30 tab 02/28/20 pramipexole 1 mg tablet 2 mg PO HS #180 tab 03/27/20 aspirin 81 mg tablet,delayed release 81 mg PO DAILY 04/03/20 clobetasol-emollient 0.05 % topical cream 1 applic TP 2XW #30 g 04/03/20 latanoprost 0.005 % eye drops 1 drp OP DAILY 04/03/20 dicyclomine 20 mg tablet 20 mg PO QID #360 tab 07/23/20 Ondansetron [Zofran Odt] 8 mg PO Q8H PRN #12 tab 07/24/20 Acetaminophen [Tylenol] 650 mg PO Q4H PRN tab 07/31/20 guaiFENesin [Robitussin] 100 mg PO Q4H PRN syrup 07/31/20 Forms: Patient Portal Registration
[2020-07-31 16:53] VITALS: BP 156/88
== END 2020-07-31 17:25 | disposition home health service (06) | DRG 177 ==
LOC: ER 20:20 → SCU 20:20 → OBSVTOIN 22:14 → SCU 23:14
PROVIDERS: ADMIT Family Medicine; ATTEND Family Medicine